=== PATIENT | female | born 1985 | race Caucasian/White ===

== ENCOUNTER 2016-12-26 10:47 | Emergency (ER) | payer MEDICAID ==
[~2016-12-26] VITALS: Ht 154.9 cm; Wt 52.3 kg
[~2016-12-26 10:47] MED LIST: DIAZ10TA PO; IBUP800T PO; METH-356 PO; OXYC20TA2 PO
[2016-12-26] MEDS ORDERED: KETOROLAC 30 MG/1 ML ONE (11:28)
[2016-12-26] MEDS ORDERED: METHOCARBAMOL 750 MG TABLET ONE (11:29)
[2016-12-26] MEDS ORDERED: KETOROLAC 30 MG/1 ML IM ONE (11:30)
[2016-12-26] MEDS ORDERED: METHOCARBAMOL 750 MG TABLET PO ONE (11:30)
[2016-12-26 12:30] VITALS: BP 104/70
== END 2016-12-26 12:48 | disposition home or self-care (01) ==
LOC: ED 11:22
DX: S16.1XXA Strain of muscle, fascia and tendon at neck level, initial encounter (principal); M47.892 Other spondylosis, cervical region; M54.5 Low back pain; F17.200 Nicotine dependence, unspecified, uncomplicated; F11.99 Opioid use, unspecified with unspecified opioid-induced disorder; Z88.5 Allergy status to narcotic agent; X58.XXXA Exposure to other specified factors, initial encounter; Y93.89 Activity, other specified; Y92.89 Other specified places as the place of occurrence of the external cause; Y99.8 Other external cause status
CPT/HCPCS: 72125; 99284